=== PATIENT | female | born 1955 | race Caucasian/White ===

== ENCOUNTER 2017-03-14 03:56 | Emergency (ER) | payer OTHER ==
--- NOTE | ~2017-03-14 | EKG ---
PATIENT: NARESH FARIA UNIT #: [id number] Ventricular Rate: 84 BPM Atrial Rate: 84 BPM P-R Interval: 152 ms QRS Duration: 82 ms Q-T Interval: 360 ms QTC Calculation(Bezet): 425 ms P [place]: 77 degrees Calculated R [place]: 71 degrees Calculated T [place]: 40 degrees Diagnosis Line: Normal sinus rhythm Diagnosis Line: Nonspecific ST and T wave abnormality Diagnosis Line: Abnormal ECG Diagnosis Line: When compared with ECG of 04-SEP-2015 05:49, Diagnosis Line: Vent. rate has increased BY 30 BPM Diagnosis Line: T wave inversion now evident in Lateral leads Diagnosis Line: Confirmed by DASH ROSE MD ([id number]) on 03/16/2017 Diagnosis Line: 2:44:33 PM INTERPRETING MD: MILTON CORLEY
--- NOTE | ~2017-03-14 | CR72 ---
[facility] A Service of [facility] RADIOLOGY TEXT RESULTS PATIENT: NARESH FARIA LOCATION: [facility] : 57 UNIT #: [id number] AGE: [address]: Neal Delgadillo SEX: F ORDER DR: [id number] [facility] [address] [place], [place] [address] [id number] E MR#: [id number] Acc #: [id number] NAME: NARESH FARIA : 1955 SEX: F STUDY DATE/TIME: 03/14/2017 4:39 UNIT: [facility] ROOM: STUDY DESCRIPTION: CR Chest Single View Portable Attending Physician: Neal Delgadillo P.A.-C. Ordering Physician: Neal Delgadillo P.A.-C. Primary Care Physician: Ariel Capellan M.D. MEDICAL IMAGING REPORT This report is preliminary unless electronic signature is present EXAM Chest x-ray, 03/14/2017 HISTORY 62-year-old female in the ED complaining of new onset chest pain today. TECHNIQUE AP portable chest x-ray FINDINGS Heart size and pulmonary vascularity are normal. The lungs are expanded and clear. No visible pulmonary infiltrate or pleural effusion. IMPRESSION Negative chest. Dictated by... Casey Ambriz M.D. THIS IS AN ELECTRONICALLY VERIFIED REPORT Casey Ambriz M.D. at 03/14/2017 5:07 PM Price TD: 03/14/2017 10:21 JOB #: [id number] MEDICAL IMAGING REPORT Page 1 of 1 COPY
[~2017-03-14 03:56] MED LIST: ALDACTONE PO; ALPRAZOLAM PO; AMITRIPTYLINE H75 MG PO; ANTACID PO; ANTI PO; ATIVAN PO; BUSPIRONE HCL10 M1 PO; CELEXA PO; COMBIVENT INH14.7 GM INH; DARVOCET-N 1001 TAB PO; DOXEPIN HCL25 MG PO; DOXEPIN PO; ESCITALOPRAM OX20 MG PO; FAMOTIDINE PO; FLEXERIL10 MG PO; FOLIC ACID PO; GABAPENTIN600 MG PO; GLUCOPHAGE XR500 MG PO; GLUCOTROL XL PO; HUMALOG100 U/ML; IBUPROFEN200 M1 PO; IBUPROFEN800 MG PO; KEFLEX PO; LANTUS100 U/ML; LASIX PO; LEVAQUIN PO; LEXAPRO PO; LIBRIUM PO; LIPITOR PO; LIPITOR20 MG PO; LISINOPRIL PO; LISINOPRIL20 MG PO; MEGACE PO; MELOXICAM15 MG PO; METFORMIN PO; MULTI-VITAMIN1 TAB PO; NICOTINE T1 PATCH .2 TOP; OMEPRAZOLE20 M2 PO; PATIENT'S PHARMACY; PRILOSEC PO; QUETIAPINE FUM200 MG PO; RANITIDINE HCL150 M1 PO; SEROQUEL XR200 MG; TEMAZEPAM PO; THIAMINE HCL100 MG PO; [UNRECOGNIZED DRUG - OTHER]
[2017-03-14 05:27] LABS: POC - CKMB 13.2 ng/mL (0.0-7.9); POC - TROPONIN <0.05 ng/mL (<=0.05)
[2017-03-14 05:48] LABS: BASOPHIL# 0.1 X10e3 (0-0.3); EOSINOPHIL% 0.3 % (0.0-7.0); HEMOGLOBIN 14.1 gm/dL (12.0-16.0); LYMPHOCYTE# 2.8 X10e3 (1.0-3.5); LYMPHOCYTE% 26.4 % (17.0-45.0); MEAN CELL VOLUME 94.8 FL (83-96); MEAN CORPUSCULAR HEMOGLOBIN 30.4 PG (28-34); MEAN CORPUSCULAR HGB CONC 32.1 g/dL (30-36); MEAN PLATELET VOLUME 7.9 FL (6.5-11.5); MONOCYTE# 0.4 X10e3 (0-1.0); NEUTROPHIL# 7.1 X10e3 (1.5-7.1); NEUTROPHIL% 68.3 % (40-75); PLATELET COUNT 192 X10e3 (140-420); RED BLOOD COUNT 4.64 X10e (3.90-5.30); WHITE BLOOD COUNT 10.4 X10e3 (4.0-10.5)
[2017-03-14 05:49] LABS: DIFF IND YES
[2017-03-14 06:44] LABS: POC - CKMB 10.6 ng/mL (0.0-7.9)
[2017-03-14 06:44] LABS: PLATELET ESTIMATE NORMAL (NORMAL)
[2017-03-14 06:45] LABS: POC - TROPONIN <0.05 ng/mL (<=0.05)
[2017-03-14 06:48] LABS: ANISOCYTOSIS SL
== END 2017-03-14 06:45 | disposition left against medical advice (07) ==
LOC: CED 03:56
PROVIDERS: Physician Assistant
DX: R07.89 Other chest pain (principal); F10.129 Alcohol abuse with intoxication, unspecified; I10 Essential (primary) hypertension; E11.9 Type 2 diabetes mellitus without complications; I25.2 Old myocardial infarction; E78.5 Hyperlipidemia, unspecified; J44.9 Chronic obstructive pulmonary disease, unspecified; F17.210 Nicotine dependence, cigarettes, uncomplicated; Z79.4 Long term (current) use of insulin; Z79.899 Other long term (current) drug therapy
CPT/HCPCS: 71010; 82553; 82947; 83880; 84484; 85025; 93005; 99285